=== PATIENT | female | born 1980 | race Caucasian/White ===

== ENCOUNTER 2019-03-12 00:06 | Emergency (ER) | payer MEDICAID, OTHER ==
[~2019-03-12] VITALS: Ht 160 cm; Wt 54.5 kg
[~2019-03-12 00:06] MED LIST: HYDR-4383 PO; ONDA4TAB6 PO; QUET-1 PO; SUCR1ORA2 PO; VENL-191 PO
[2019-03-12 00:11] VITALS: BP 114/80
== END 2019-03-12 00:45 | disposition home or self-care (01) ==
LOC: ER 00:06
DX: S30.1XXA Contusion of abdominal wall, initial encounter (principal); L76.82 Other postprocedural complications of skin and subcutaneous tissue; R22.2 Localized swelling, mass and lump, trunk; K21.9 Gastro-esophageal reflux disease without esophagitis; Z98.890 Other specified postprocedural states; Z79.899 Other long term (current) drug therapy; Z86.19 Personal history of other infectious and parasitic diseases; X58.XXXA Exposure to other specified factors, initial encounter; Y93.89 Activity, other specified; Y92.89 Other specified places as the place of occurrence of the external cause; Y99.8 Other external cause status; Y83.8 Other surgical procedures as the cause of abnormal reaction of the patient, or of later complication, without mention of misadventure at the time of the procedure
CPT/HCPCS: 99281

== ENCOUNTER 2020-09-05 17:57 | Emergency (ER) | payer OTHER ==
[~2020-09-05] VITALS: Ht 157.5 cm; Wt 65.9 kg
[2020-09-05 18:00] VITALS: BP 105/60
[2020-09-05] MEDS ORDERED: ketorolac tromethamine 15mg/ml inj. IM ONE (18:40)
[2020-09-05] MEDS ORDERED: diazepam 5mg tablet PO ONE (18:40)
[2020-09-05] MEDS ORDERED: IBUP-1985 PO (18:50)
[2020-09-05] MEDS ORDERED: METH-360 PO (18:50)
== END 2020-09-05 19:08 | disposition home or self-care (01) ==
LOC: ER 17:58
DX: S29.012A Strain of muscle and tendon of back wall of thorax, initial encounter (principal); M54.5 Low back pain; R07.81 Pleurodynia; K21.9 Gastro-esophageal reflux disease without esophagitis; Z86.19 Personal history of other infectious and parasitic diseases; Z98.890 Other specified postprocedural states; Z79.899 Other long term (current) drug therapy; V87.7XXA Person injured in collision between other specified motor vehicles (traffic), initial encounter; Y93.89 Activity, other specified; Y92.488 Other paved roadways as the place of occurrence of the external cause; Y99.8 Other external cause status
CPT/HCPCS: 96372; 99283; J1885

== ENCOUNTER → 2024-06-18 | Outpatient (CLI) | payer MEDICAID ==
[~2024-06-18] MED LIST changes: +IBUP-1985 PO; +METH-360 PO
== END | disposition home or self-care (01) ==
LOC: RAD 09:22
PROVIDERS: ATTEND Physician Assistant
DX: K76.0 Fatty (change of) liver, not elsewhere classified (principal)
CPT/HCPCS: 76700

== ENCOUNTER 2024-10-17 11:06 | Emergency (ER) | payer MEDICAID ==
[~2024-10-17] VITALS: Ht 162.6 cm; Wt 65.0 kg
[2024-10-17 11:07] VITALS: BP 109/72; PULSE 110; O2SAT 99
[2024-10-17] MEDS ORDERED: ALPR-624 PO (12:11)
[2024-10-17] MEDS ORDERED: [UNRECOGNIZED DRUG - CODE] PO (12:11)
[2024-10-17 12:22] VITALS: RESP 16; TEMP 98.5
== END 2024-10-17 12:21 | disposition home or self-care (01) ==
LOC: ER 11:06
DX: F41.9 Anxiety disorder, unspecified (principal); K21.9 Gastro-esophageal reflux disease without esophagitis; Z98.890 Other specified postprocedural states; Z79.1 Long term (current) use of non-steroidal anti-inflammatories (NSAID); Z79.899 Other long term (current) drug therapy
CPT/HCPCS: 99283

== ENCOUNTER 2025-04-26 15:26 | Emergency (ER) | payer MEDICAID ==
[~2025-04-26] VITALS: Ht 157.5 cm; Wt 54.4 kg
[~2025-04-26 15:26] MED LIST changes: +ALPR-624 PO; +[UNRECOGNIZED DRUG - CODE] PO
[2025-04-26 16:38] LABS: BASOPHILS % (AUTO) 0.5 % (0-1); EOSINOPHILS # (AUTO) 0.1 X10'3 (0-0.9); EOSINOPHILS % (AUTO) 1.2 % (0-6); HEMATOCRIT 38.9 % (35.0-45.0); HEMOGLOBIN 13.4 g/dl (12.0-16.0); LYMPHOCYTES # (AUTO) 2.5 X10'3 (1.1-4.8); LYMPHOCYTES % (AUTO) 31.6 % (21-51); MEAN CORPUSCULAR HEMOGLOBIN 30.4 PG (27.0-31.0); MEAN CORPUSCULAR HGB CONC 34.4 g/dL (33.0-36.5); MEAN CORPUSCULAR VOLUME 88.4 FL (78-98); MEAN PLATELET VOLUME 7.3 FL (7.4-10.4); MONOCYTES # (AUTO) 0.7 X10'3 (0-0.9); MONOCYTES % (AUTO) 9.2 % (2-12); NEUTROPHILS # (AUTO) 4.5 X10'3 (1.8-7.7); NEUTROPHILS % (AUTO) 57.5 % (42-75); PLATELET COUNT 342 X10'3 (140-440); RED CELL DISTRIBUTION WIDTH 12.3 % (11.5-14.5); WHITE BLOOD COUNT 7.8 X10'3 (4.5-11.0)
[2025-04-26 17:07] LABS: ALANINE AMINOTRANSFERASE 16 U/L (12-78); ALBUMIN 3.9 G/DL (3.4-5.0); ALBUMIN/GLOBULIN RATIO 1.1 (1.1-1.5); ALKALINE PHOSPHATASE 50 IU/L (46-116); ANION GAP 7 (8-16); ASPARTATE AMINO TRANSFERASE 12 U/L (10-37); BILIRUBIN,TOTAL 0.5 MG/DL (0.1-1.0); BLOOD UREA NITROGEN 12 MG/DL (7-18); BUN/CREATININE RATIO 11.4 (10.0-20.0); CALCIUM 8.5 MG/DL (8.5-10.1); CHLORIDE 105 MMOL/L (99-107); CREATININE 1.05 MG/DL (0.40-0.90); GLUCOSE 75 MG/DL (70-104); LIPASE 38 U/L (16-77); POTASSIUM 3.6 MMOL/L (3.5-5.1); SODIUM 140 MMOL/L (135-145); TOTAL CARBON DIOXIDE 27.9 MMOL/L (24-32); TOTAL PROTEIN 7.5 G/DL (6.4-8.2); eCRCL 55 ML/MIN; eGFR 57 ML/MIN
[2025-04-26 18:28] LABS: BILIRUBIN,URINE NEGATIVE (Neg); CLARITY,URINE CLEAR (Clear); COLOR,URINE YELLOW (Yellow); GLUCOSE, URINE NEGATIVE (Neg); KETONES,URINE NEGATIVE (Neg); LEUKOCYTE ESTERASE ,URINE NEGATIVE (Neg); NITRITES, URINE NEGATIVE (Neg); OCCULT BLOOD,URINE NEGATIVE (Neg); PROTEIN,URINE NEGATIVE (Neg); UROBILINOGEN,URINE 0.2 E.U/dL (0.2-1.0)
[2025-04-26 18:29] LABS: URINE HCG NEGATIVE (NEG)
[2025-04-26 18:37] LABS: UA COLLECTION TYPE CLN CATCH MIDSTREAM
[2025-04-26] MEDS ORDERED: DIPH-186 PO (18:43)
--- NOTE | 2025-04-26 18:44 | Physician Documentation ---
History of Present Illness General Chief Complaint: Diarrhea Stated Complaint: DIARRHEA WEAKNESS Time Seen by MD: 17:08 Primary Medical Doctor: Yudy Jaramillo History of Present Illness Initial Comments 44-year-old female brought into the emergency department for evaluation of the persistent diarrhea that caused near-syncope. Patient has been having diarrhea nausea vomiting for five days without fever myalgias or rigors. Initially felt that she had influenza yet has had no cough or other associated symptoms. No recent illness, ill contacts or travels. Diarrhea is nonbloody. There was no reported arthralgias. Medication Reconciliation Allergies: Coded Allergies: No Known Allergies (Unverified , 08/05/12) Scheduled Alprazolam* (Xanax*), 0.5 MG PO Q6H Ibuprofen (Ibuprofen), 1 TAB PO Q8H Methocarbamol (Robaxin-750), 1 TAB PO Q12H Quetiapine Fumarate* (Seroquel*), 100 MG PO HS, (Reported) Sucralfate (Carafate), 10 ML PO QAMHS Venlafaxine Hcl* (Effexor*), 225 MG PO TID, (Reported) Scheduled PRN Clonazepam (Clonazepam), 1 TAB PO HS PRN for anxiety Hydrocodone/Acetaminophen (Graham 5-325 Tablet), 1 TABLET PO TID PRN for pain Ondansetron Hcl (Zofran), 1 TABLET PO Q6H PRN for pain Ondansetron Hcl (Zofran), 1 TABLET PO Q6H PRN for pain Past Medical History Past Medical History: GERD, Hepatitis C, *PSYCH* Past Surgical History: abdominal surgery, Smoking: Non-Smoker Alcohol Use: None Drug Use: none Lives with: Family Lives In: Home Occupation: employed Review of Systems Constitutional: Denies: fever, chills RESP: Denies: short of breath, cough GI: Reports: vomiting, diarrhea Physical Exam Physical Exam Vital Signs: RN Vital Signs have been reviewed: Yes, Temperature: 98.6, Source: Temporal, Heart Rate: 100, Respiratory Rate: 15, BP: 111/80, Pulse Oximetry: 100, Weight: 54.400 General Appearance: alert, moderate distress Head: normal inspection Face: normal inspection Pupils/EOM/Fundus: PERRLA Oropharynx: normal inspection Neck: non-tender, supple; No: meningeal signs Respiratory: normal breath sounds, no respiratory distress Cardiovascular: tachycardia Gastrointestinal: tenderness Extremities: normal range of motion Neurologic: oriented x4 Motor / Sensory: no motor deficit, no sensory deficit Psychiatric: normal mood/affect Skin: normal color, warm/dry; No: rash Progress Results/Orders Results/Orders Completed Orders - HARLEY CANTOR PAC Normal Saline 1000ml (Sodium Chloride 10 (04/26/25 17:30) Morphine 2mg/Ml Inj. (Morphine Inj.) (04/26/25 18:05) Vital Signs 04/26/25 15:27 Temp 98.6 Pulse 100 Resp 15 B/P (MAP) 111/80 Pulse Ox 100 Laboratory Tests Test 04/26/25 16:13 04/26/25 18:03 White Blood Count 7.8 Red Blood Count 4.40 Hemoglobin 13.4 Hematocrit 38.9 Mean Corpuscular Volume 88.4 Mean Corpuscular Hemoglobin 30.4 Mean Corpuscular Hemoglobin Concent 34.4 Red Cell Distribution Width 12.3 Platelet Count 342 Mean Platelet Volume 7.3 L Neutrophils (%) (Auto) 57.5 Lymphocytes (%) (Auto) 31.6 Monocytes (%) (Auto) 9.2 Eosinophils (%) (Auto) 1.2 Basophils (%) (Auto) 0.5 Neutrophils # (Auto) 4.5 Lymphocytes # (Auto) 2.5 Monocytes # (Auto) 0.7 Eosinophils # (Auto) 0.1 Basophils # (Auto) 0.0 CBC Comment Sodium Level 140 Potassium Level 3.6 Chloride Level 105 Carbon Dioxide Level 27.9 Anion Gap 7 L Blood Urea Nitrogen 12 Creatinine 1.05 H Estimated GFR/1.73 m2 57 BUN/Creatinine Ratio 11.4 Glucose Level 75 Calcium Level 8.5 Total Bilirubin 0.5 Aspartate Amino Transf (AST/SGOT) 12 Alanine Aminotransferase (ALT/SGPT) 16 Alkaline Phosphatase 50 Total Protein 7.5 Albumin 3.9 Globulin 3.6 Albumin/Globulin Ratio 1.1 Lipase 38 Chemistry Comments Urine Specimen Description Cln catch midstream Urine Color Yellow Urine Clarity Clear Urine pH 7.0 Urine Specific [place] <=1.005 Urine Protein Negative Urine Glucose (UA) Negative Urine Ketones Negative Urine Occult Blood Negative Urine Nitrite Negative Urine Bilirubin Negative Urine Urobilinogen 0.2 Urine Leukocyte Esterase Negative Urine Culture Indicated Not ind Volume Urine Centrifuged 10 ml Urine HCG, Qualitative Negative Urine Comment Medical Decision Making Differential Diagnosis Examination history is consistent with early dehydration secondary to infectious versus inflammatory diarrhea. Patient is a receive IV hydration resuscitation along with pain management for abdominal discomfort and cramping. Labs were all reassuring for no FRAN and electrolytes all within normal limits. Patient tolerating p.o. electrolyte solution while in the emergency department. She will be discharged to continue with oral hydration and with considerations to beginning Imodium to slow down the diarrhea. No clear indication that this time to begin stool studies yet if diarrhea persist for 3-5 more days certainly we will obtain stool specimens. Safely discharged in the emergency department. Departure Disposition: HOME / SELF CARE / HOMELESS Impression: Primary Impression: Near syncope Additional Impression: Diarrhea Qualified Codes: R19.7 - Diarrhea, unspecified Condition: Improved Discharge Instructions: Diarrhea, Adult Additional Instructions: In the emergency department you received IV hydration along with medicine for cramping. Indeterminate for diuresis infectious and/or inflammatory today yet recommend stool cultures in 3-5 days if continued. I have prescribed a medication to mitigate your diarrhea. Continue to oral hydrate. Take a few days off for work. Return as needed. Referrals: NO PRIMARY CARE PROVIDER (PCP) Prescriptions Diphenoxylate HCl/Atropine (Lomotil 2.5-0.025 mg Tablet) 2.5 Mg-0.025 Mg Tablet 1 TAB PO Q6H for 5 Days, #20 TAB 0 Refills Prov: HARLEY CANTOR 04/26/25 Education Educated: Patient, Family Educated regarding: diagnosis Signature Scribe Signature: . Attestation: . HARLEY CANTOR Apr 26, 2025 18:43
[2025-04-26] MEDS: normal saline 1000ml 1,000 ML IV ONE (18:51)
[2025-04-26] MEDS: morphine 2 MG/ML inj. syringe IV ONE (18:52)
[2025-04-26 19:54] VITALS: BP 118/80; PULSE 82; RESP 16; TEMP 98.6; O2SAT 99
== END 2025-04-26 19:55 | disposition home or self-care (01) ==
LOC: ER 15:26
DX: R55 Syncope and collapse (principal); R19.7 Diarrhea, unspecified; R11.2 Nausea with vomiting, unspecified; Z79.899 Other long term (current) drug therapy
CPT/HCPCS: 36415; 80053; 81003; 81025; 83690; 85025; 96361; 96374; 99283; J2270; J7030